=== PATIENT | female | born 1980 | race Caucasian/White ===

== ENCOUNTER 2019-05-06 13:49 | Emergency (ER) | payer SELFPAY ==
[~2019-05-06] VITALS: Ht 160 cm; Wt 64.0 kg
[~2019-05-06 13:49] MED LIST: FERR325T23 PO; L25 PO; PANT40VI IV; PARO-66 PO; THIA100T72 PO
[2019-05-06] MEDS ORDERED: SODIUM CHLORIDE 0.9% 1,000 ML IV ONE (17:24)
[2019-05-06] MEDS ORDERED: ONDANSETRON HCL 4MG/2ML INJ IV ONE (17:30)
[2019-05-06] MEDS ORDERED: LORAZEPAM 2MG/ML CPJ IV ONE (17:30)
[2019-05-06 17:40] LABS: BASOPHILS % 0.5 % (0.0-2.0); EOSINOPHILS % 1.8 % (0.0-5.0); HEMATOCRIT. 43.5 % (36.0-48.0); HEMOGLOBIN. 14.3 g/dL (12.0-16.0); LYMPHOCYTES % 17.7 % (20.0-50.0); MEAN CORPUSCULAR HEMOGLOBIN 28.9 pg (28.0-32.0); MEAN CORPUSCULAR VOLUME 87.8 fL (81.0-99.0); MEAN PLATELET VOLUME 10.4 fl (7.4-10.4); MONOCYTES % 5.2 % (2.0-8.0); NEUTROPHILS % 74.8 % (40.0-76.0); PLATELET 241 x1000/uL (130-400); RED BLOOD CELL COUNT 4.95 mill/uL (4.2-5.4); RED CELL DISTRIBUTION WIDTH 24.2 % (11.6-14.6)
[2019-05-06 17:44] LABS: CHLORIDE 102 mEq/L (98-107)
[2019-05-06 17:47] LABS: ETHANOL BLOOD < 10 mg/dL
[2019-05-06 17:53] LABS: HCG SCREEN NEGATIVE
[2019-05-06 17:57] LABS: PLATELET ESTIMATE NORMAL
[2019-05-06 20:00] LABS: *AMPHETAMINES SCREEN URINE NEGATIVE (NEGATIVE); *BARBITURATES SCREEN URINE NEGATIVE (NEGATIVE)
[2019-05-06 20:01] LABS: *BENZODIAZEPINES SCREEN URINE NEGATIVE (NEGATIVE); *COCAINE SCREEN URINE NEGATIVE (NEGATIVE); CANNABINOID URINE SCREEN NEGATIVE (NEGATIVE); METHADONE URINE SCREEN NEGATIVE (NEGATIVE)
[2019-05-06 20:25] VITALS: BP 131/74
[2019-05-06 20:29] LABS: OPIATES URINE SCREEN PRESUMTIVE POSITIVE (NEGATIVE)
[2019-05-06 20:33] LABS: PHENCYCLIDINE URINE SCREEN PRESUMTIVE POSITIVE (NEGATIVE)
== END 2019-05-06 20:28 | disposition home or self-care (01) ==
LOC: ER 13:49
DX: F10.239 Alcohol dependence with withdrawal, unspecified (principal); E86.0 Dehydration; R00.0 Tachycardia, unspecified; R00.2 Palpitations; D64.9 Anemia, unspecified; J45.909 Unspecified asthma, uncomplicated; Z98.51 Tubal ligation status; Z98.890 Other specified postprocedural states; Y90.0 Blood alcohol level of less than 20 mg/100 ml
CPT/HCPCS: 36415; 80053; 80305; 80320; 83690; 84484; 84703; 85025; 93005; 96361; 96374; 96375; 99284; J2060; J2405; J7030; Z7610; G0480

== ENCOUNTER 2022-04-26 15:51 | Emergency (ER) | payer OTHER ==
[~2022-04-26] VITALS: Ht 160 cm; Wt 73.0 kg
[2022-04-26 16:01] VITALS: BP 139/47
[2022-04-26] MEDS ORDERED: IBUPROFEN 600MG TABLET PO STA (16:13)
[2022-04-26] MEDS ORDERED: IBUP-2029 MT (17:29)
[2022-04-30] MEDS ORDERED: GABA800T97 PO (07:24)
[2022-04-30] MEDS ORDERED: NALT380S2 IM (07:25)
[2022-04-30] MEDS ORDERED: CYCL10TA21 PO (07:27)
== END 2022-04-26 17:44 | disposition home or self-care (01) ==
LOC: ER 15:51
DX: S09.8XXA Other specified injuries of head, initial encounter (principal); J45.909 Unspecified asthma, uncomplicated; F10.21 Alcohol dependence, in remission; Z98.51 Tubal ligation status; Z98.890 Other specified postprocedural states; Z88.5 Allergy status to narcotic agent; W18.2XXA Fall in (into) shower or empty bathtub, initial encounter; Y93.E1 Activity, personal bathing and showering; Y92.012 Bathroom of single-family (private) house as the place of occurrence of the external cause
CPT/HCPCS: 93005; 99284

== ENCOUNTER 2022-11-27 08:40 | Emergency (ER) | payer MEDICAID, OTHER ==
[~2022-11-27] VITALS: Ht 162.6 cm; Wt 72.0 kg
[~2022-11-27 08:40] MED LIST changes: +CYCL10TA21 PO; +GABA800T97 PO; +NALT380S2 IM; +OMEP40CA20 MT
[2022-11-27 08:58] VITALS: BP 149/51
[2022-11-27] MEDS ORDERED: IBUPROFEN 400MG TABLET PO ONE (09:15)
[2022-11-27] MEDS ORDERED: IBUP-2028 MT (10:35)
[2022-11-27] MEDS ORDERED: IBUPROFEN 400MG TABLET PO SCH (12:20)
== END 2022-11-27 12:38 | disposition home or self-care (01) ==
LOC: ER 08:40
DX: S70.02XA Contusion of left hip, initial encounter (principal); M25.561 Pain in right knee; M54.59 Other low back pain; R26.89 Other abnormalities of gait and mobility; R03.0 Elevated blood-pressure reading, without diagnosis of hypertension; W01.0XXA Fall on same level from slipping, tripping and stumbling without subsequent striking against object, initial encounter; Y93.89 Activity, other specified; Y92.89 Other specified places as the place of occurrence of the external cause; F10.21 Alcohol dependence, in remission; Z88.6 Allergy status to analgesic agent
CPT/HCPCS: 73502; 73562; 99284

== ENCOUNTER 2023-08-23 15:09 | Emergency (ER) | payer MEDICAID, OTHER ==
[~2023-08-23] VITALS: Ht 162.6 cm; Wt 55.0 kg
[~2023-08-23 15:09] MED LIST changes: +IBUP-2028 MT; +PARO-150 PO; -PARO-66 PO
[2023-08-23 15:12] VITALS: O2SAT 97
[2023-08-23] MEDS ORDERED: PANTOPRAZOLE SODIUM 40 MG/VIAL IV STA (16:41)
[2023-08-23] MEDS ORDERED: DIAZEPAM 5 MG/ML 2ML CPJ IV ONE (16:45)
[2023-08-23] MEDS ORDERED: FOLIC ACID 1 MG, THIAMINE HCL 100 MG, MVI, ADULT NO.1 10 ML in DEXTROSE 5% WATER 1,000 ML IV ONE ×4 (16:45)
[2023-08-23 17:18] LABS: BASOPHILS % 0.4 % (0.0-2.0); DIFFERENTIAL COMMENT 0; EOSINOPHILS % 0.2 % (0.0-5.0); HEMATOCRIT. 33.7 % (36.0-48.0); HEMOGLOBIN. 10.2 g/dL (12.0-16.0); LYMPHOCYTES % 24.1 % (20.0-50.0); MEAN CORPUSCULAR HEMOGLOBIN 22.5 pg (28.0-32.0); MEAN CORPUSCULAR HGB CONC 30.3 g/dL (31.0-37.0); MEAN CORPUSCULAR VOLUME 74.3 fL (81.0-99.0); MEAN PLATELET VOLUME 9.3 fl (7.4-10.4); MONOCYTES % 5.1 % (2.0-8.0); NEUTROPHILS % 70.2 % (40.0-76.0); PLATELET 303 x1000/uL (130-400); RED BLOOD CELL COUNT 4.54 mill/uL (4.2-5.4); RED CELL DISTRIBUTION WIDTH 20.7 % (11.6-14.6); WHITE BLOOD COUNT 9.5 x1000/uL (4.5-11.0)
[2023-08-23 17:27] LABS: INR 0.9; PROTHROMBIN TIME 10.2 sec (9.6-11.0)
[2023-08-23 17:28] LABS: CHLORIDE 104 mEq/L (98-107); INDEX HEMOLYSI 1 (1-3); INDEX ICTERIC 1 (1-4); INDEX LIPEMIC 1 (1-3); POTASSIUM 3.2 mEq/L (3.5-5.1); SODIUM 137 mEq/L (136-145)
[2023-08-23 17:31] LABS: CALCIUM 8.2 mg/dL (8.5-10.1); GLUCOSE 116 mg/dL (70-105); UREA NITROGEN BLOOD 16 mg/dL (7-21)
[2023-08-23 17:38] LABS: ALANINE AMINOTRANSFERASE 41 IU/L (13-61); ASPARTATE AMINOTRANSFERASE 35 IU/L (15-37); BILIRUBIN TOTAL 0.5 mg/dL (0.1-1.0); CARBON DIOXIDE 21 mEq/L (21-32); CREATININE 0.5 mg/dL (0.6-1.3); ETHANOL BLOOD 141 mg/dL (<10); PROTEIN TOTAL 8.3 g/dL (6.0-8.3); TROPONIN I HIGH SENSITIVITY 5 ng/L (<54)
[2023-08-23 17:40] LABS: HCG SCREEN NEGATIVE
[2023-08-23 17:48] LABS: LACTIC ACID 2.9 mmol/L (0.4-2.0)
[2023-08-23] MEDS ORDERED: GABA-532 MT (21:13)
[2023-08-23] MEDS ORDERED: L25 PO (21:13)
[2023-08-23 21:40] VITALS: BP 142/82; PULSE 86; RESP 16; TEMP 98.8
== END 2023-08-23 21:59 | disposition home or self-care (01) ==
LOC: ER 15:09
DX: R68.89 Other general symptoms and signs (principal); F10.229 Alcohol dependence with intoxication, unspecified; D64.9 Anemia, unspecified; J45.909 Unspecified asthma, uncomplicated; Z98.890 Other specified postprocedural states; Z98.51 Tubal ligation status; Y90.6 Blood alcohol level of 120-199 mg/100 ml
CPT/HCPCS: 80053; 80320; 84703; 83605; 83690; 85025; 85610; 84484; 36415; 96365; 96375; 99284; J3360; J3490 ×2; C9113; J3411; J7070; Z7610 ×3; G0480

== ENCOUNTER 2024-09-18 15:48 | Emergency (ER) | payer MEDICAID ==
[~2024-09-18] VITALS: Ht 162.6 cm; Wt 80.0 kg
[~2024-09-18 15:48] MED LIST changes: +ALBU6.7H15 INH; +CHLO25CA11 PO; +DILT30TA37 PO; +FOLI-43 PO; -IBUP-2028 MT; -L25 PO; -PANT40VI IV; +TRAZ-251 PO
[2024-09-18 16:11] VITALS: O2SAT 100
[2024-09-18 17:27] LABS: BASOPHILS % 1.1 % (0.0-2.0); EOSINOPHILS % 0.5 % (0.0-5.0); HEMATOCRIT. 41.1 % (36.0-48.0); HEMOGLOBIN. 13.4 g/dL (12.0-16.0); LYMPHOCYTES % 54.6 % (20.0-50.0); MEAN CORPUSCULAR HEMOGLOBIN 29.4 pg (28.0-32.0); MEAN CORPUSCULAR HGB CONC 32.5 g/dL (31.0-37.0); MEAN CORPUSCULAR VOLUME 90.5 fL (81.0-99.0); MEAN PLATELET VOLUME 9.6 fl (7.4-10.4); MONOCYTES % 5.9 % (2.0-8.0); NEUTROPHILS % 37.9 % (40.0-76.0); PLATELET 114 x1000/uL (130-400); RED BLOOD CELL COUNT 4.54 mill/uL (4.2-5.4); RED CELL DISTRIBUTION WIDTH 18.2 % (11.6-14.6); WHITE BLOOD COUNT 4.5 x1000/uL (4.5-11.0)
[2024-09-18 17:31] LABS: CHLORIDE 106 mEq/L (98-107); POTASSIUM 3.5 mEq/L (3.5-5.1); SODIUM 144 mEq/L (136-145)
[2024-09-18 17:32] LABS: CARBON DIOXIDE 29 mEq/L (21-32)
[2024-09-18 17:33] LABS: CALCIUM 8.2 mg/dL (8.7-10.4)
[2024-09-18 17:37] LABS: CREATININE 0.7 mg/dL (0.6-1.0); GLUCOSE 103 mg/dL (70-105); UREA NITROGEN BLOOD 10 mg/dL (9-23)
[2024-09-18 17:39] LABS: ACETAMINOPHEN < 2 ug/mL (10-30)
[2024-09-18 17:42] LABS: HCG SCREEN NEGATIVE
[2024-09-18 17:42] LABS: *AMPHETAMINES SCREEN URINE NEGATIVE (NEGATIVE); *BARBITURATES SCREEN URINE NEGATIVE (NEGATIVE); *BENZODIAZEPINES SCREEN URINE NEGATIVE (NEGATIVE); *COCAINE SCREEN URINE NEGATIVE (NEGATIVE); CANNABINOID URINE SCREEN NEGATIVE (NEGATIVE); ECSTASY MDMA SCREEN URINE NEGATIVE (NEGATIVE); METHADONE URINE SCREEN NEGATIVE (NEGATIVE); OPIATES URINE SCREEN NEGATIVE (NEGATIVE); PHENCYCLIDINE URINE SCREEN NEGATIVE (NEGATIVE)
[2024-09-18 17:51] LABS: ETHANOL BLOOD 484 mg/dL (<10)
[2024-09-18] MEDS: LORAZEPAM 2MG/ML INJ IM ONE (22:18)
[2024-09-19 08:07] VITALS: BP 141/83; PULSE 100; RESP 18; TEMP 37.05852; O2SAT 98
== END 2024-09-19 11:27 | disposition home or self-care (01) ==
LOC: ER 15:48
DX: F98.9 Unspecified behavioral and emotional disorders with onset usually occurring in childhood and adolescence (principal); F41.9 Anxiety disorder, unspecified; F32.A Depression, unspecified; J45.909 Unspecified asthma, uncomplicated; Z88.5 Allergy status to narcotic agent; Z79.899 Other long term (current) drug therapy; Z20.822 Contact with and (suspected) exposure to COVID-19
CPT/HCPCS: 80305; 80048; 80307; 80329; 80320; 84703; 85025; 36415; 96372; 99285; 87426; J2060; Z7610 ×2; G0480

== ENCOUNTER 2024-12-11 22:20 | Emergency (ER) | payer MEDICAID ==
[~2024-12-11] VITALS: Ht 167.6 cm; Wt 82.0 kg
[2024-12-11 22:29] VITALS: O2SAT 96
[2024-12-12 02:12] LABS: HCG SCREEN NEGATIVE
[2024-12-12 04:22] VITALS: BP 100/81; PULSE 111; RESP 18; TEMP 36.8; O2SAT 99
== END 2024-12-12 04:27 | disposition home or self-care (01) ==
LOC: ER 22:20
DX: S00.512A Abrasion of oral cavity, initial encounter (principal); F10.129 Alcohol abuse with intoxication, unspecified; R51.9 Headache, unspecified; F41.9 Anxiety disorder, unspecified; F32.A Depression, unspecified; J45.909 Unspecified asthma, uncomplicated; I10 Essential (primary) hypertension; Z79.899 Other long term (current) drug therapy; Z88.5 Allergy status to narcotic agent; W19.XXXA Unspecified fall, initial encounter; Y93.89 Activity, other specified; Y92.89 Other specified places as the place of occurrence of the external cause; Y99.8 Other external cause status; Y90.9 Presence of alcohol in blood, level not specified
CPT/HCPCS: 36415; 80320; 84703; 99284; G0480